=== PATIENT | female | born 1995 | race Caucasian/White ===

== ENCOUNTER 2017-02-19 09:26 | Emergency (ER) | payer OTHER ==
[2017-02-19 09:40] VITALS: BP 111/71
[2017-02-19 10:15] LABS: BILIRUBIN,URINE NEG (NEG); CLARITY,URINE TURBID; COLOR,URINE YELLOW; GLUCOSE,URINE NEG (NEG)
[2017-02-19] MEDS ORDERED: NORMAL SALINE IV SCH (10:15)
--- NOTE | 2017-02-19 10:15 | PHYS DOC ---
Past History Past Medical History: No Pertinent History Past Surgical History: No Surgical History Alcohol Use: None Drug Use: None Adult General Chief Complaint Chief Complaint: ABDOMINAL PAIN IN HPI HPI Patient is a 21 year old female who presents with right flank pain for the past 2-3 days. Patient states that the pain as 10 out of 10 and located in her right side. Patient states that she has had associated nausea and vomiting though she had attributed this originally to morning sickness. The patient is currently 19 weeks and 5 days currently receiving care at [facility]. Patient denies any associated complications with her thus far. Patient denies any significant past medical history. The patient states that she recently was treated for urinary tract infection with Macrobid approximately 3 weeks ago. Patient does admit to generalized fatigue. Patient denies any known fevers, vaginal bleeding, abnormal vaginal discharge, or dysuria. Review of Systems Review of Systems Constitutional: Generalized fatigue, denies fever or chills [] Eyes: Denies change in visual acuity, redness, or eye pain [] HENT: Denies nasal congestion or sore throat [] Respiratory: Denies cough or shortness of breath [] Cardiovascular: Denies chest pain or edema[] GI: Nausea, vomiting, denies abdominal pain, bloody stools or diarrhea [] : Right flank pain, denies hematuria or dysuria[] Musculoskeletal: Denies back pain or joint pain [] Integument: Denies rash or skin lesions [] Neurologic: Headache, denies focal weakness or sensory changes [] Current Medications Current Medications Current Medications Medications (Trade) Dose Ordered Sig/Go Start Time Stop Time Status Last Admin Dose Admin Ceftriaxone Sodium 1 gm/ Sodium Chloride 50 ml @ 100 mls/hr 1X ONCE 02/19/17 10:15 02/19/17 10:44 UNV Fentanyl Citrate (Fentanyl 2ml Vial) 50 mcg PRN Q15MIN PRN 02/19/17 10:15 02/20/17 10:14 UNV Ondansetron HCl (Zofran) 4 mg 1X ONCE 02/19/17 10:15 02/19/17 10:16 UNV Sodium Chloride 1,650 ml @ 550 mls/hr Q3H 02/19/17 10:15 UNV Physical Exam Physical Exam Constitutional: Alert, afebrile, appears ill. [] HENT: Normocephalic, atraumatic, bilateral external ears normal, oropharynx moist, no oral exudates, nose normal. [] Eyes: PERRLA, EOMI, conjunctiva normal, no discharge. [] Neck: Normal range of motion, no tenderness, supple, no stridor. [] Cardiovascular: Tachycardia, regular rhythm, no murmur [] Lungs & Thorax: Bilateral breath sounds clear to auscultation [] Abdomen: Bowel sounds normal, soft, no tenderness, no masses, no pulsatile masses. [] Skin: Warm, dry, no erythema, no rash. [] Back: No midline tenderness, right CVA tenderness to palpation, no flank ecchymosis. [] Extremities: No tenderness, no cyanosis, no clubbing, ROM intact, no edema. [] Neurologic: Alert and oriented X 3, normal motor function, normal sensory function, no focal deficits noted. [] Current Patient Data Vital Signs Vital Signs Date Time Temp Pulse Resp B/P (MAP) Pulse Ox O2 Delivery O2 Flow Rate FiO2 02/19/17 09:40 99.2 104 16 98 Room Air EKG EKG Not performed[] Radiology/Procedures Radiology/Procedures heart tones: 156 bpm[] Course & Med Decision Making Course & Med Decision Making Pertinent Labs and Imaging studies reviewed. (See chart for details) Patient started on IV fluids, fentanyl, and Zofran in the emergency department. I consulted Dr. Chacko of [facility]. She recommended administration of IV clindamycin in the emergency department. She stated that if patient improved she may be discharged home on a 10 day course of oral clindamycin. On reevaluation, patient reports improvement in her pain symptoms. Vital signs are stable at this time. The patient will continue on oral clindamycin as recommended. Advised follow-up in 2-3 days with patient's [facility] for reevaluation and return to emergency department for any worsening symptoms. Patient voiced understanding and in agreement with treatment plan. Dragon Disclaimer Dragon Disclaimer This chart was dictated in whole or in part using Voice Recognition software in a busy, high-work load, and often noisy Emergency Department environment. It may contain unintended and wholly unrecognized errors or omissions. Departure Departure: Impression: Primary Impression: Acute pyelonephritis Additional Impression: Second trimester Disposition: HOME, SELF-CARE Condition: IMPROVED Referrals: BERTHA LARRY MD (PCP) Patient Instructions: - Urinary Tract Infection, Pyelonephritis, Adult Additional Instructions: Follow-up with your [facility] in 2-3 days for reevaluation. Return to the emergency department for any worsening symptoms. Scripts Ondansetron (ZOFRAN ODT) 4 Mg Tab.rapdis 1 TAB SL Q6HRS Y for NAUSEA/VOMITING, #15 TAB Prov: SAQIB SNEED MD 02/19/17 Clindamycin Hcl (CLINDAMYCIN HCL) 150 Mg Capsule 3 CAP PO TID, #90 CAP Prov: SAQIB SNEED MD 02/19/17 Problem Qualifiers SAQIB SNEED MD Feb 19, 2017 10:15
[2017-02-19 10:16] LABS: BACTERIA,URINE MANY /HPF (0-FEW); NITRITE,URINE POS (NEG); SQUAMOUS EPITHELIAL CELL,UR OCC /LPF; UROBILINOGEN,URINE 0.2 mg/dL (0.2 mg/dL); WBC,URINE >40 /HPF (0-4)
[2017-02-19 10:21] LABS: BASO % 0 % (0-3); EOS % 0 % (0-3); HEMATOCRIT 32.1 % (36.0-47.0); HEMOGLOBIN 11.3 g/dL (12.0-15.5); LYMPH # 0.8 x10^3/uL (1.0-4.8); LYMPH % 5 % (24-48); MEAN CORPUSCULAR HEMOGLOBIN 30 pg (25-35); MEAN CORPUSCULAR HGB CONC 35 g/dL (31-37); MEAN CORPUSCULAR VOLUME 86 fL (79-100); MONO # 1.2 x10^3/uL (0.0-1.1); MONO % 8 % (0-9); NEUT # 13.4 x10^3uL (1.8-7.7); NEUT % 87 % (31-73); PLATELET COUNT 204 x10^3/uL (140-400); RED BLOOD COUNT 3.72 x10^6/uL (3.50-5.40); RED CELL DISTRIBUTION WIDTH 13.6 % (11.5-14.5); WHITE BLOOD COUNT 15.5 x10^3/uL (4.0-11.0)
[2017-02-19] MEDS ORDERED: ONDANSETRON PF 4 MG/2 ML VIAL. IV ONE (10:25)
[2017-02-19] MEDS ORDERED: IV NORMAL SALINE 1,000ML 1,000 ML IV SCH (10:30)
[2017-02-19] MEDS ORDERED: CLINDAMYCIN 600MG PREMIX 50 ML IV ONE (10:30)
[2017-02-19 10:50] LABS: ALBUMIN/GLOBULIN RATIO 0.6 (1.0-1.7); CALCIUM 8.7 mg/dL (8.5-10.1); CREATININE 0.5 mg/dL (0.6-1.0); GFR 157.3; POTASSIUM 3.3 mmol/L (3.5-5.1); TOTAL BILIRUBIN 1.5 mg/dL (0.2-1.0); TOTAL PROTEIN 7.9 g/dL (6.4-8.2)
[2017-02-19 11:17] LABS: % BANDS 7 % (0-9); % LYMPHS 6 % (24-48); % MONOS 4 % (0-10); % SEGS 83 % (35-66); PLT ESTIMATE ADEQUATE (ADEQUATE)
[2017-02-19] MEDS ORDERED: CLIN150C14 PO (11:21)
[2017-02-19] MEDS ORDERED: ONDA4TAB10 SL (11:22)
== END 2017-02-19 11:35 | disposition home or self-care (01) ==
LOC: ER 09:26
DX: O23.02 Infections of kidney in pregnancy, second trimester (principal); Z3A.19 19 weeks gestation of pregnancy
CPT/HCPCS: 36415; 80053; 81001; 83605; 85007; 85025; 87040; 87086; 96365; 96375; 99285; J2405; J3010; J3490; J7030

== ENCOUNTER 2017-05-13 13:00 | Emergency (ER) | payer OTHER ==
[~2017-05-13] VITALS: Ht 149.9 cm; Wt 59.0 kg
[~2017-05-13 13:00] MED LIST: CLIN150C14 PO; ONDA4TAB10 SL
[2017-05-13] MEDS ORDERED: FLUT9.9S NS (15:17)
--- NOTE | 2017-05-13 15:17 | PHYS DOC ---
Past History Past Medical History: No Pertinent History Past Surgical History: No Surgical History Alcohol Use: None Drug Use: None Adult General Chief Complaint Chief Complaint: SORE THROAT HPI HPI Patient is a 22 year old female who presents with sore throat, nasal congestion and mild cough. Laura came to the emergency room because she had a very small amount of blood in sputum that she coughed up today. She states that the symptoms just started this morning. She denies fever sweats or chills. She has no shortness of breath. She has no other associated symptoms and no other exacerbating or alleviating factors. She is . She has felt frequent movements. She has no vaginal bleeding or discharge. She has no regular contractions. Review of Systems Review of Systems Constitutional: Denies fever or chills [] Eyes: Denies change in visual acuity, redness, or eye pain [] HENT: Negative except history of present illness Respiratory: Denies cough or shortness of breath [] Cardiovascular: No additional information not addressed in HPI [] GI: Denies abdominal pain, nausea, vomiting, bloody stools or diarrhea [] : Denies dysuria or hematuria [] Musculoskeletal: Denies back pain or joint pain [] Integument: Denies rash or skin lesions [] Neurologic: Denies headache, focal weakness or sensory changes [] Endocrine: Denies polyuria or polydipsia [] All other systems were reviewed and found to be within normal limits, except as documented in this note. Family History Family History No pertinent family medical history reported Current Medications Current Medications Current medications were reviewed Allergies Allergies Allergies Coded Allergies Type Severity Reaction Last Updated Verified No Known Drug Allergies 02/19/17 No Physical Exam Physical Exam Constitutional: Well developed, well nourished, no acute distress, non-toxic appearance. [] HENT: Normocephalic, atraumatic, moderate bilateral nasal mucosa erythema and mild edema, mild oral pharyngeal erythema, no anterior lymphadenopathy Eyes: EOMI, conjunctiva normal, no discharge. [] Neck: Normal range of motion, no tenderness, supple, no stridor. [] Cardiovascular:Heart rate regular rhythm, Lungs & Thorax: Bilateral breath sounds clear to auscultation [] Abdomen: Bowel sounds normal, soft, no tenderness, no masses, no pulsatile masses. [] Gravid, heart tones 140 Skin: Warm, dry, no erythema, no rash. [] Back: No tenderness, no CVA tenderness. [] Extremities: No tenderness, no cyanosis, no clubbing, ROM intact, no edema. [] Neurologic: Alert and oriented X 3, normal motor function, normal sensory function, no focal deficits noted. [] Psychologic: Affect normal, judgement normal, mood normal. [] Current Patient Data Vital Signs Vital Signs Date Time Temp Pulse Resp B/P (MAP) Pulse Ox O2 Delivery O2 Flow Rate FiO2 05/13/17 13:21 98.4 97 16 98 Room Air EKG EKG [] Radiology/Procedures Radiology/Procedures [] Course & Med Decision Making Course & Med Decision Making Pertinent Labs and Imaging studies reviewed. (See chart for details) [] Dragon Disclaimer Dragon Disclaimer This electronic medical record was generated, in whole or in part, using a voice recognition dictation system. Departure Departure: Impression: Primary Impression: Viral upper respiratory infection Disposition: HOME, SELF-CARE Condition: STABLE Referrals: PCP,UNKNOWN (PCP) Patient Instructions: Upper Respiratory Infection, Adult Additional Instructions: Laura was seen in the emergency department for nasal congestion, sore throat and cough. No emergency medical condition was found on history or physical exam. Her symptoms are most consistent with a viral upper respiratory infection. She is advised to use nasal saline rinses regularly and was given a prescription for nasal steroid spray. She was advised the nasal steroids are class C in . She was advised follow-up with her primary care doctor and /or [facility] in the next 3-5 days for further management. Scripts Fluticasone Propionate (Flonase Allergy Relief) 9.9 Ml [place].susp 1 SPRAYS NS BID for 7 Days, BOTTLE Prov: RAZA DALE MD 05/13/17 RAZA DALE MD May 13, 2017 15:17
[2017-05-13 16:07] VITALS: BP 110/58
== END 2017-05-13 15:30 | disposition home or self-care (01) ==
LOC: ER 13:00
DX: J06.9 Acute upper respiratory infection, unspecified (principal); B97.89 Other viral agents as the cause of diseases classified elsewhere
CPT/HCPCS: 99282

== ENCOUNTER 2017-11-23 16:54 | Emergency (ER) | payer OTHER ==
[~2017-11-23] VITALS: Ht 149.9 cm; Wt 59.0 kg
[~2017-11-23 16:54] MED LIST changes: +FLUT9.9S NS
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
[2017-11-23 18:19] VITALS: BP 105/64
--- NOTE | 2017-11-24 02:40 | RAD ---
PA chest and 3 oblique left rib x-rays HISTORY: Chronic left rib pain. FINDINGS: Heart size normal. Mediastinal silhouette is normal. No pneumothorax, pulmonary opacities or pleural effusions. No evidence of a left rib fracture. Bones are unremarkable. IMPRESSION: No acute process. No evidence of a left rib fracture. Electronically signed by: Matteo Orozco MD (11/24/2017 2:36 AM) [id number]
== END 2017-11-23 18:15 | disposition home or self-care (01) ==
LOC: ER 16:54
DX: R07.81 Pleurodynia (principal); S80.02XA Contusion of left knee, initial encounter; S80.01XA Contusion of right knee, initial encounter; Y08.89XA Assault by other specified means, initial encounter; Y93.89 Activity, other specified; Y92.89 Other specified places as the place of occurrence of the external cause; Y99.8 Other external cause status
CPT/HCPCS: 71101; 99284